=== PATIENT | female | born 1955 | race Two or more races ===

== ENCOUNTER → 2019-02-25 | Outpatient (CLI) | payer OTHER | END | disposition home or self-care (01) | LOC: RAD 13:27 | DX: M17.10 Unilateral primary osteoarthritis, unspecified knee (principal) ==

== ENCOUNTER 2025-02-23 08:57 | Outpatient (CLI) | payer OTHER | END 2025-02-23 09:05 | disposition home or self-care (01) | LOC: RAD 08:57 | PROVIDERS: ATTEND General Practice | DX: M17.11 Unilateral primary osteoarthritis, right knee (principal) ==